=== PATIENT | female | born 1990 | race Caucasian/White ===

== ENCOUNTER 2018-03-27 22:32 | Emergency (ER) | payer OTHER ==
[2018-03-27 22:43] VITALS: BP 130/79; PULSE 86; TEMP 98.6; BMI 24.9
--- NOTE | 2018-03-27 23:29 | PDOC ---
History of Present Illness - General Chief Complaint: Redness To Affected Area Stated Complaint: INFECTION ON RT FINGER Time Seen by Provider: 03/27/18 23:03 History Source: Patient, Parent(s) Exam Limitations: No Limitations - History of Present Illness Initial Comments: 28 y/o [facility] ER via private auto complaining of redness, swelling, and pain to right middle finger since Wednesday. Symptoms started spontaneously after she broke a nail. No systemic symptoms including fevers, chills, or diaphoresis. No significant past medical history. Past History - Past Medical History Allergies/Adverse Reactions: Allergies Allergy/AdvReac Type Severity Reaction Status Date / Time No Known Allergies Allergy Verified 03/27/18 22:41 Home Medications: Ambulatory Orders Cephalexin Monohydrate [Keflex -] 500 mg PO Q6H 5 Days #20 capsule 03/27/18 COPD: No - Suicide/Smoking/Psychosocial Hx Smoking History: Never smoked Review of Systems - Review of Systems Able to Perform ROS?: Yes Is the patient limited Vietnamese proficient: No Constitutional: No: Chills, Diaphoresis, Fever Respiratory: No: Shortness of Breath Cardiac (ROS): No: Chest Pain ABD/GI: No: Constipated, Diarrhea, Nausea, Vomiting Musculoskeletal: No: Muscle Pain, Muscle Weakness Integumentary: Yes: Change in Color, Change in Hair/Nails, Erythema, Rash. No: Pruritus, Sweating Hematologic/Lymphatic: No: Blood Clots, Easy Bleeding, Bleeding Diathesis, Lymph Node Abnormalities, Swollen Glands *Physical Exam - Vital Signs Last Vital Signs Temp Pulse Resp BP Pulse Ox 98.6 F 86 18 130/79 98 03/27/18 22:41 03/27/18 22:41 03/27/18 22:41 03/27/18 22:41 03/27/18 22:41 - Physical Exam General Appearance: Yes: Appropriately Dressed. No: Apparent Distress HEENT: positive: Normal Voice Respiratory/Chest: positive: Lungs Clear, Normal Breath Sounds. negative: Chest Tender, Respiratory Distress, Accessory Muscle Use Cardiovascular: positive: Regular Rhythm, Regular Rate, S1, S2 Lymphatic: negative: Adenopathy (Right axillary), Tenderness (Right axillary) Extremity: positive: Other (Swelling and erythema on ulnar aspect of right middle finger without expansion into the pulp. Subjectively tender. ) Integumentary: positive: Normal Color, Dry, Warm, Other (No lymphatic streaking ) Procedures - Incision and Drainage I&D Site: Right: Other (Right Middle Finger Paronychia) Betadine cleansed: Yes Blade Size: 18g IV cathether Attempts: 1 Plain Packing: No Complications: none Dressing: Yes (Dry, sterile dressing) Medical Decision Making - Medical Decision Making Previously healthy 28 y/o female complaining of paronychia on right middle finger. Low suspicion for felon as it does not appear to extend into the pulp. Afebrile. Vitals unremarkable for hypotension or tachycardia. Paronychia drained using 18g IV catheter. Pt reports area feels better. Discussed importance of keeping the area clean and suggested soaking the finger in warm water over the next few days. Prescribed outpatient Keflex. Answered all questions. Pt and mother both expressed verbal understanding and agreement with plan to discharge home with outpatient follow up within the next week. *DC/Admit/Observation/Transfer Diagnosis at time of Disposition: Paronychia - Discharge Dispostion Disposition: HOME Condition at time of disposition: Good Decision to Admit order: No - Prescriptions Prescriptions: Cephalexin Monohydrate [Keflex -] 500 mg PO Q6H 5 Days #20 capsule - Referrals Referrals: Mychal Dougherty MD [Primary Care Provider] - - Patient Instructions Printed Discharge Instructions: DI for Paronychia Additional Instructions: I have sent a prescription for Keflex to the [address] [place] [address] [place] [address]. Their phone number is . Take this medication four times a day for the next five days. Please follow up with your primary care physician within the next week to make sure the infection is healing. You will need to call to make an appointment. The office telephone number is included in this packet. Place your finger in warm water a few times a day for the next 4 days. This should allow the skin to relax and drain. Please come back to the emergency department if you get a fever, notice red streaking away from the hand, start to have trouble moving the finger, or you feel like your condition requires additional emergency evaluation. Print Language: [place] - Post Discharge Activity
--- NOTE | 2018-03-27 23:39 | PDOC ---
Attending Attestation - Resident Resident Name: Sumit Faust - ED Attending Attestation I have performed the following: I have examined & evaluated the patient, The case was reviewed & discussed with the resident, I agree w/resident's findings & plan, Exceptions are as noted - HPI HPI: 03/27/18 23:37 28 yo female noted she broke a fingernail earlier in the week and then developed swelling around her nail - Physicial Exam PE: 03/28/18 00:20 Swelling to lateral surface of fingernail w erythema sensation is intact - Medical Decision Making 03/27/18 23:39 plan cleanse the area w betadine and drain the paronychia
== END 2018-03-28 00:20 | disposition home or self-care (01) ==
LOC: JER 22:32
PROC: 0J9J0ZZ Drainage of Right Hand Subcutaneous Tissue and Fascia, Open Approach (ICD-10-PCS; principal; 2018-03-27)
DX: L03.011 Cellulitis of right finger (principal)
CPT/HCPCS: 87070; 87077; 87186; 87205; 99281-25

== ENCOUNTER 2018-05-19 22:48 | Emergency (ER) | payer OTHER ==
[2018-05-19 22:54] VITALS: BP 146/96; PULSE 130; TEMP 98; BMI 25.0
--- NOTE | 2018-05-20 01:11 | PDOC ---
Attending Attestation - Resident Resident Name: Tio Prescott - HPI HPI: 05/20/18 03:26 Pt presents to the ED complaining of pain and swelling in the area of two dog bites. PAtient was bitten by her neighbor's dog, who the neighbor reports has completed his rabies shots. Denies other injuries. - Physicial Exam PE: 05/20/18 03:29 Agree with resident exam. Patient has small area of swelling with abrasion to her R forearm and buttock. No lacerations. Complains of parasthesias with flexing her wrist only. 05/20/18 03:31 - Medical Decision Making 05/20/18 03:32 Pt presents to the ED complaining of small and superficial ecchymoses and abrasions to her wrist and buttock after bitten by known dog. PAtient believes that dog has been vaccinated. tachycardia has resolved. Will treat with augmentin, give tetanus and discharge home. 05/20/18 03:33
[2018-05-20] MEDS ORDERED: ACETAMINOPHEN 500 MG TABLET (FP) PO ONE (01:25)
--- NOTE | 2018-05-20 01:37 | PDOC ---
History of Present Illness - General Chief Complaint: Bite Stated Complaint: DOGBITE Time Seen by Provider: 05/20/18 00:33 History Source: Patient Exam Limitations: No Limitations - History of Present Illness Initial Comments: 05/20/18 02:30 28 yo female no sig pmh presents to the ED after being bitten by her neighbors ghazala just before arrival. Last tetanus unknown. Patient has bite wound to right forearm and left buttock. Patient states she has numbness into right hand with associated weakness. Denies N/V/F/C Past History - Past Medical History Allergies/Adverse Reactions: Allergies Allergy/AdvReac Type Severity Reaction Status Date / Time No Known Allergies Allergy Verified 05/19/18 22:54 Home Medications: Ambulatory Orders Cephalexin Monohydrate [Keflex -] 500 mg PO Q6H 5 Days #20 capsule 03/27/18 Amox-Tr/K Cl [Augmentin - 875Mg Tablet] 1 tab PO BID #10 tablet 05/20/18 COPD: No - Suicide/Smoking/Psychosocial Hx Smoking History: Never smoked Review of Systems - Review of Systems Constitutional: No: Chills, Fever Respiratory: No: Shortness of Breath Cardiac (ROS): No: Chest Pain *Physical Exam - Vital Signs Last Vital Signs Temp Pulse Resp BP Pulse Ox 98 F 130 H 18 146/96 97 05/19/18 22:52 05/19/18 22:52 05/19/18 22:52 05/19/18 22:52 05/19/18 22:52 Medical Decision Making - Medical Decision Making 05/20/18 03:02 28 yo female presents to ED after dog bite. Neighbors state dog was vaccinated but not able to prove with paperwork and told to get print out from vet tmr. Patients pain relieved with tylenol 1000mg po in the ED No fracture on right forearm x ray will send home with Augmentin and follow up with primary care doctor *DC/Admit/Observation/Transfer Diagnosis at time of Disposition: Dog bite Qualifiers: Encounter type: initial encounter Qualified Code(s): W54.0XXA - Bitten by dog, initial encounter - Discharge Dispostion Disposition: HOME Condition at time of disposition: Stable Decision to Admit order: No - Referrals - Patient Instructions Printed Discharge Instructions: DI for Animal Bites - Post Discharge Activity
[2018-05-20] MEDS ORDERED: DIPHTH,PERTUSS(ACELL),TET 0.5 ML DISP.SYRIN IM ONE (01:50)
[2018-05-20] MEDS ORDERED: ACETAMINOPHEN 325 MG TABLET (FP) ONE (01:58)
== END 2018-05-20 03:35 | disposition home or self-care (01) ==
LOC: JER 22:48
DX: S50.871A Other superficial bite of right forearm, initial encounter (principal); S30.870A Other superficial bite of lower back and pelvis, initial encounter; W54.0XXA Bitten by dog, initial encounter; Y93.89 Activity, other specified; Y92.018 Other place in single-family (private) house as the place of occurrence of the external cause; Y99.8 Other external cause status
CPT/HCPCS: 73090-TC-RT-FY; 84703; 90715; 99282-25

== ENCOUNTER 2018-07-13 17:28 | Emergency (ER) | payer OTHER ==
[2018-07-13 17:37] VITALS: BP 131/91; PULSE 99; TEMP 98; BMI 24.1
--- NOTE | 2018-07-13 17:40 | PDOC ---
Rapid Medical Evaluation Chief Complaint: Chest Pain Time Seen by Provider: 07/13/18 17:36 Medical Evaluation: Allergies Allergy/AdvReac Type Severity Reaction Status Date / Time No Known Allergies Allergy Verified 05/19/18 22:54 07/13/18 17:37 I have performed a brief in-person evaluation of this patient. The patient presents with a chief complaint of: Intermittent CP x 2 days. No sob, diaphoresis, palpations, leg pain or swelling. No tob use or illicit drug use. No recent travel. No pmhx Pertinent physical exam findings: Stable and well robert w/ clear chest/lungs I have ordered the following:ekg/CXR The patient will proceed to the ED for further evaluation Discharge Disposition - Diagnosis Chest pain Qualifiers: Chest pain type: unspecified Qualified Code(s): R07.9 - Chest pain, unspecified - Referrals - Patient Instructions - Post Discharge Activity
--- NOTE | 2018-07-13 18:32 | PDOC ---
History of Present Illness - General Chief Complaint: Chest Pain Stated Complaint: CHEST PAIN, LT ARM NUMBNESS Time Seen by Provider: 07/13/18 17:36 - History of Present Illness Initial Comments: 07/13/18 18:29 28-year-old female without comorbidities presents for evaluation of 2 days of left-sided chest pain Past History - Past Medical History Allergies/Adverse Reactions: Allergies Allergy/AdvReac Type Severity Reaction Status Date / Time No Known Allergies Allergy Verified 07/13/18 17:37 Home Medications: Ambulatory Orders NK [No Known Home Medication] 07/13/18 COPD: No - Suicide/Smoking/Psychosocial Hx Smoking History: Never smoked Have you smoked in the past 12 months: No Information on smoking cessation initiated: No Hx Alcohol Use: No Drug/Substance Use Hx: No Review of Systems - Review of Systems Cardiac (ROS): Yes: Chest Pain *Physical Exam - Vital Signs Last Vital Signs Temp Pulse Resp BP Pulse Ox 98.0 F 99 H 16 131/91 100 07/13/18 17:35 07/13/18 17:35 07/13/18 17:35 07/13/18 17:35 07/13/18 17:35 - Physical Exam Comments: 07/13/18 18:30 HEAD: NC/AT EYES: Conjuntiva clear Ears: Canals and TM's normal NOSE: No d/c THROAT: Moist mucous membrances, oral pharanx clear, uvula midline NECK: Supple without adenopathy CARDIAC: S1 S2 there is tenderness about the left side of the chest in the costochondral area of ribs 3 and 4 LUNGS: CTA Full and Equal breath sounds ABDOMEN: Soft NT ND MS: Full ROM in all joints without edema NEUROLOGIC: No gross sensory or motor deficits, NVID SKIN: Normal color and temperature no lesions or rashes Moderate Sedation - Procedure Monitoring Vital Signs: Procedure Monitoring Vital Signs Temperature 98.0 F 07/13/18 17:35 Pulse Rate 99 H 07/13/18 17:35 Respiratory Rate 16 07/13/18 17:35 Blood Pressure 131/91 07/13/18 17:35 O2 Sat by Pulse Oximetry (%) 100 07/13/18 17:35 Medical Decision Making - Medical Decision Making 07/13/18 18:30 EKG and chest x-ray negative reproducible chest pain with palpation costochondritis *DC/Admit/Observation/Transfer Diagnosis at time of Disposition: Costochondral chest pain Chest pain Qualifiers: Chest pain type: unspecified Qualified Code(s): R07.9 - Chest pain, unspecified - Discharge Dispostion Disposition: HOME Condition at time of disposition: Stable - Referrals Referrals: Paras Atkinson MD [Staff Physician] - - Patient Instructions Printed Discharge Instructions: DI for Atypical Chest Pain, Costochondritis, DI for Costochondritis Additional Instructions: Return to the emergency room should symptoms worsen or don't resolve. Please follow up with a primary care physician in one to 2 days for further evaluation and treatment options. Tylenol and Motrin as directed for pain. - Post Discharge Activity
--- NOTE | 2018-07-15 10:22 | EKG ---
Test Reason : Blood Pressure : / mmHG Vent. Rate : 100 BPM Atrial Rate : 100 BPM P-R Int : 116 ms QRS Dur : 076 ms QT Int : 334 ms P-R-T Axes : 048 036 029 degrees QTc Int : 430 ms NORMAL SINUS RHYTHM NORMAL ECG NO PREVIOUS ECGS AVAILABLE Confirmed by RASHEL TRIMBLE MD ([id number]) on 07/15/2018 10:21:56 AM Referred By: Confirmed By:RASHEL TRIMBLE MD
== END 2018-07-13 18:35 | disposition home or self-care (01) ==
LOC: JERFT 17:28
DX: M94.0 Chondrocostal junction syndrome [Tietze] (principal); R07.9 Chest pain, unspecified
CPT/HCPCS: 71046-TC-FY; 93005; 93010; 99281-25